=== PATIENT | male | born 2000 | race Caucasian/White ===

== ENCOUNTER 2021-11-15 02:38 | Emergency (ER) | payer OTHER ==
[~2021-11-15] VITALS: Ht 190.5 cm; Wt 90.9 kg
[2021-11-15 02:48] VITALS: TEMP 99.8
[2021-11-15 03:27] LABS: BASO % 0.3 % (0.0-2.0); GRAN # 10.7 K/mm3 (1.4-6.5); GRAN % 90.4 % (42.2-75.2); HEMATOCRIT 41.6 % (42.0-52.0); LYMPH # 0.4 K/mm3 (1.2-3.4); LYMPH % 3.5 % (20.0-51.0); MEAN CELL VOLUME 83 fl (80.0-100.0); MEAN CORPUSCULAR HEMOGLOBIN 30 pg (27-31); MEAN CORPUSCULAR HGB CONC 36 g/dl (33.0-37.0); MONO # 0.6 K/mm3 (0.1-0.6); MONO % 5.4 % (1.7-9.3); PLATELET COUNT 244 K/mm3 (130-400); RED BLOOD COUNT 4.99 M/mm3 (4.20-5.60); REDCELL DISTRIBUTION WIDTH-CV 11.7 % (11.5-14.5)
[2021-11-15 03:43] LABS: ALBUMIN 4.5 gm/dL (3.5-5.0); BILIRUBIN,TOTAL 0.8 mg/dL (0.2-1.2); CALCIUM 8.8 mg/dL (8.4-10.2); CREATININE, serum 1.02 mg/dL (0.72-1.25); POTASSIUM 3.9 mmol/L (3.5-4.5); TOTAL PROTEIN 7.2 gm/dL (6.2-8.1)
[2021-11-15] MEDS ORDERED: PROTONIX 40MG T40 MG PO (04:10)
[2021-11-15 04:30] VITALS: BP 128/64; PULSE 70
== END 2021-11-15 04:30 | disposition home or self-care (01) ==
LOC: COL.ER 02:38
PROVIDERS: Emergency Medicine
DX: K29.70 Gastritis, unspecified, without bleeding (principal); K92.0 Hematemesis; R00.0 Tachycardia, unspecified
CPT/HCPCS: C9113; J2405; J7030